=== PATIENT | female | born 1985 | race Caucasian/White ===

== ENCOUNTER 2016-09-25 10:03 | Emergency (ER) | payer MEDICAID ==
[2016-09-25 10:26] VITALS: BP 139/94; PULSE 87; RESP 18; TEMP 98.2; O2SAT 95
--- NOTE | 2016-09-25 10:28 | EDPHY ---
H & P Time Seen by Provider: 09/25/16 10:25 HPI/ROS: CHIEF COMPLAINT: Vaginal bleeding HISTORY OF PRESENT ILLNESS: Para 1 AB1 31-year-old woman presents with vaginal bleeding starting yesterday. She had some cramping and bleeding which is early for her. Her last menstrual cycle was August 24, and then previous to that was very regular on a 1 month interval. In the last 6 weeks she is used Plan B for contraception 3 different times. Bleeding is mild, similar to menstrual period with some abdominal cramping. Not associated with urinary symptoms. She had some chills yesterday. No dizziness lightheadedness or syncope and no other sites of bleeding. REVIEW OF SYSTEMS: Eye: no change in vision ENT: no sore throat Cardiac: no chest pain or syncope Pulmonary: no cough or SOB Abdomen: no vomiting, diarrhea, abdominal pain Musculoskeletal: no back pain Skin: no rash Neuro: no headache Constitutional: no fever : no urinary symptoms A comprehensive 10 point review of systems is otherwise negative aside from elements mentioned in the history of present illness. PAST MEDICAL HISTORY: Negative except for as above Social history: Nonsmoker General Appearance: Alert and conversant, cooperative. Eyes: No scleral icterus. ENT, Mouth: Normal mucous membranes. Respiratory: Normal respiratory effort, breath sounds equal, lungs are clear to auscultation. Cardiovascular: Regular rate and rhythm. Gastrointestinal: Abdomen is soft and non tender. Neurological: Alert and oriented x3. Normally conversant. Face symmetric, normal movement and sensation in all extremities. Skin: Warm and dry, no rashes. Musculoskeletal: No peripheral edema and no joint swelling. Psychiatric: Not agitated. Emergency Department course/MDM: Plan for urine and pelvic exam. She is particularly worried about STD. Likely dysfunctional uterine bleeding from external hormone use recently. Pelvic exam performed to the patient's nurse shows normal external genitalia. No herpes lesions. Normal internal genitalia with some blood in the cervical os in the vault but no intra vaginal or cervical lesions and no cervical motion tenderness. GC and chlamydia testing done. Urine test negative, ectopic unlikely. Smoking Status: Current some day smoker Constitutional: Initial Vital Signs Temperature (C) 36.8 C 09/25/16 10:23 Heart Rate 87 09/25/16 10:23 Respiratory Rate 18 09/25/16 10:23 Blood Pressure 139/94 H 09/25/16 10:23 O2 Sat (%) 95 09/25/16 10:23 O2 Delivery Mode Room Air Allergies/Adverse Reactions: No Known Allergies Allergy (Unverified 09/25/16 10:23) Home Medications: Medication Instructions Recorded NK [No Known Home Meds] 09/25/16 Medical Decision Making Differential Diagnosis: Differential for vaginal bleeding considered including but not limited to miscarriage, ectopic, PID, dysfunctional uterine bleeding. - Data Points Laboratory Results: 09/25/16 10:45 C.trachomatis RNA (TMA) Pending N.gonorrhoeae RNA (TMA) Pending Departure - Departure Disposition: Home, Routine, Self-Care Clinical Impression: Dysfunctional uterine bleeding Condition: Good Instructions: Dysfunctional Uterine Bleeding (ED) Additional Instructions: Call in 24-48 hours for STD testing results. [phone] Referrals: Iza Gusman MD [Medical Doctor] - As per Instructions
[2016-09-26 11:49] LABS: CHLAMYDIA AMPLIFICATION GENPRB NEGATIVE (NEGATIVE)
== END 2016-09-25 11:15 | disposition home or self-care (01) ==
DX: N93.8 Other specified abnormal uterine and vaginal bleeding (principal); F17.200 Nicotine dependence, unspecified, uncomplicated